=== PATIENT | female | born 1960 | race Caucasian/White ===

== ENCOUNTER 2017-08-13 08:32 | Day surgery (SDC) | payer OTHER ==
[2017-08-13] MEDS ORDERED: MIDAZOLAM 1 MG/ML 2 ML INJ (10:35)
[2017-08-13] MEDS ORDERED: FENTAnyl 50 MCG/ML VIAL (10:35)
== END 2017-08-13 12:14 | disposition home or self-care (01) ==
LOC: GIL 08:32
DX: Z12.11 Encounter for screening for malignant neoplasm of colon (principal); K57.90 Diverticulosis of intestine, part unspecified, without perforation or abscess without bleeding; K64.8 Other hemorrhoids; E11.9 Type 2 diabetes mellitus without complications
CPT/HCPCS: 45378; 82962